=== PATIENT | female | born 1980 | race Caucasian/White ===

== ENCOUNTER 2019-08-30 16:20 | Emergency (ER) | payer OTHER, SELFPAY ==
[2019-08-30 16:30] VITALS: BP 121/87; PULSE 77; RESP 18; TEMP 36.8; O2SAT 98
--- NOTE | 2019-08-30 16:36 | ED.SKABFB ---
HPI - Skin/Abscess/Foreign Bdy General Chief complaint: Skin/Abscess/Foreign Body Stated complaint: Rash on arms/chest/stomach Time Seen by Provider: 08/30/19 16:37 Source: patient and RN notes reviewed Mode of arrival: ambulatory Limitations: no limitations History of Present Illness HPI narrative: This is a 38 years old female presented office for evaluation of sudden onset of itchy rash prior to arrival. She was sitting at home and noticed the itchiness on her arm which she scratched and then she noticed more rash on her breasts and her belly and her lower leg. Denies any association such as fever, feeling ill, nauseous, or vomiting. She did not go outside working in her yard. Denies new medication, clothes, detergent, body wash, or food. No treatment prior to arrival. Her drove her here. Related Data Allergies Allergy/AdvReac Type Severity Reaction Status Date / Time No Known Allergies Allergy Verified 08/30/19 16:40 Review of Systems Review of Systems: Narrative: CONSTITUTIONAL: Denies fever, chills ENT: Denies rhinorrhea, congestion, sore throat, otalgia. CARDIOVASCULAR: Denies chest pain RESPIRATORY: Denies dyspnea, wheezing, cough GASTROINTESTINAL: Denies abdominal pain, nausea, vomiting, diarrhea. GENITOURINARY: Denies urinary symptoms SKIN: Reports itchy rash/bumps on her extremities, chest and belly MUSCULOSKELETAL: Denies acute joints pain or insect bite. NEUROLOGIC: Denies lightheaded/dizziness All other systems reviewed are negative, except as documented in HPI. PMFSH Comments At time of signature, I agree with nursing past medical, surgical, social and family history. There is no relevant family history pertinent to the presenting complaint. Exam Narrative: Exam Narrative: GENERAL: This is a well-nourished, well-developed patient, in no apparent distress. THROAT: Mucous membranes moist, posterior pharynx clear. NECK: Neck supple, non-tender without lymphadenopathy, masses or thyromegaly. CARDIOVASCULAR: Regular rate and rhythm without murmurs, gallops, or rubs. RESPIRATORY: Clear to auscultation. Breath sounds equal bilaterally. No wheezes, rales, or rhonchi. GASTROINTESTINAL: Abdomen soft, non-tender, nondistended. Bowel sounds are active. No hepato-splenomegaly, or palpable masses. No guarding. SKIN: left upper arm noted scatter macular erythema lesions on her anterior aspect of upper arm, left breast noted group macular-erythema with scratch cobos, left side abdomen noted urticaria type of rash. Left anterior knee cap also noted macularpapular-erythematous and edematous without pain to palpation. NEURO: awake, alert, and oriented to person, place and time. There were no obvious focal neurologic abnormalities. Steady gait Henry Coma Scale Eye Opening: Spontaneous 4 Henry Coma Scale Motor: Obeys Commands 6 Henry Coma Scale Verbal: Oriented 5 MDM - Skin/Abscess/Foreign Bdy MDM Narrative Medical decision making narrative: Discharge instructions reviewed with patient, as well as provided in writing per nursing staff. The instructions also include specific and strict return/GO TO THE ER as well as f/u information. All questions have been answered, and the patient deny any further questions with discharge and discharge plan. Differential Diagnosis Differential diagnosis: Likely abscess of skin or subcutaneous tissue, viral exanthem, urticaria, allergic reaction to drug, cellulitis, insect bites, impetigo and contact dermatitis Critical Care Time Critical Care Time Critical Care Time: No Discharge Plan Discharge Clinical Impression: Pruritic erythematous rash Patient Disposition: Home, Self-Care Condition: Stable Instructions: Antibiotic Form, Acute Rash (ED) Additional Instructions: Wash the area with soap and cool water only. Avoid scratching when possible to prevent worsening of the condition and disruption of the skin that could lead to bacterial infection To relieve
[2019-08-30] MEDS: methylPREDNISolone ACETATE 40 MG/ML VIAL 80 MG IM (16:53)
== END 2019-08-30 17:15 | disposition home or self-care (01) ==
PROVIDERS: Emergency Provider Nurse Practitioner
DX: L29.9 Pruritus, unspecified (principal)
CPT/HCPCS: 96372; 99213; A9270; G0463; J1030

== ENCOUNTER 2020-10-12 17:57 | Emergency (ER) | payer OTHER, SELFPAY ==
[2020-10-12 18:02] VITALS: BP 133/77; PULSE 84; RESP 16; TEMP 37.1; O2SAT 99
--- NOTE | 2020-10-12 18:45 | ED.SKABFB ---
HPI - Skin/Abscess/Foreign Bdy General Chief complaint: Skin/Abscess/Foreign Body Stated complaint: Possible Ringworm on left Arm Time Seen by Provider: 10/12/20 18:45 Source: patient, RN notes reviewed and old records reviewed Mode of arrival: ambulatory Limitations: no limitations History of Present Illness HPI narrative: 39 YEAR OLD FEMALE PRESENTS TO [facility] WITH 2-3 WEEK DURATION OF RASH AREA TO HER LEFT FOREARM WHICH IS RED FLAT WITH CENTER CLEARING 2.5 X 2CM IN SIZE WHICH IS ITCHY. PATIENT REPORTS THAT SHE HAS BEEN APPLYING JOCK ITCH CREAM AND APPLYING BANDAID WITH NO IMPROVEMENT, PATIENT DENIES ANY OTHER AREAS OF THIS TYPE OF LESION, DENIES ANYONE ELSE IN HOUSEHOLD EXPERIENCING THIS TYPE OF RASH. MD complaint: rash Onset (ago): week(s) (2-3 WEEKS) Related Data Allergies Allergy/AdvReac Type Severity Reaction Status Date / Time No Known Allergies Allergy Verified 10/12/20 18:09 Review of Systems Review of Systems: CONSTITUTIONAL: Denies fever, chills, or sweats. EYES: Denies visual changes, redness, or discharge. ENT: Denies rhinorrhea, congestion, sore throat, or otalgia. CARDIOVASCULAR: Denies chest pain, palpitations, or edema. RESPIRATORY: Denies cough or dyspnea. GASTROINTESTINAL: Denies abdominal pain, nausea, vomiting, or diarrhea. GENITOURINARY: Denies dysuria or hematuria. SKIN: positive rash or itching to lesion to left forearm for 2-3 week duration MUSCULOSKELETAL: Denies back pain, joint pain, or myalgia. NEUROLOGIC: Denies headache, numbness, or weakness. PSYCHIATRIC: Denies anxiety or depression All systems reviewed & are unremarkable except as noted in HPI and below PMFSH Past Medical History Medical History (Updated 10/16/20 @ 11:27 by Minoo Nguyen NP) Bronchitis History of strep sore throat Kidney stone Surgical History Surgical History (Updated 10/16/20 @ 11:26 by Minoo Nguyen NP) History of tubal ligation Family History Family History (Updated 10/16/20 @ 11:29 by Minoo Nguyen NP) Mother Bone cancer Other Kidney stones Social History Social History (Updated 10/16/20 @ 11:28 by Minoo Nguyen NP) Smoking status: Former smoker Additional smoking assessment comments: quit in 1997 after smoking 1 year Alcohol intake: current Alcohol use details: rare social Substance use: never Living arrangements: with family Gender identity (if verbalized by the patient): Female Exam Narrative: GENERAL: Well-appearing, well-nourished, and in no acute distress. HEAD: Normocephalic, atraumatic. EYES: PERRLA and EOMI. ENT: Nares clear, no rhinorrhea or epistaxis. Mucous membranes moist.TM's normal with good light reflex, throat pink with no lesions or exudates, no tonsil enlargement. NECK: Supple.no lymphadenopathy CHEST: Clear to auscultation. No respiratory distress.SAO2 99% on room air HEART: Regular rate and rhythm. No murmur heard. Normal peripheral pulses. ABDOMEN: Soft, nontender, nondistended, normal active bowel sounds. EXTREMITIES: Normal range of motion. No edema. SKIN: Warm, dry, [id number] flat red lesion to left forearm with central clearing which is itchy, no other lesions noted to body NEURO: No focal deficits. Alert and oriented x3. Course Vital Signs Vital signs: Vital Signs Temperature 37.1 C 10/12/20 18:02 Pulse Rate 84 10/12/20 18:02 Respiratory Rate 16 10/12/20 18:02 Blood Pressure 133/77 10/12/20 18:02 Pulse Oximetry 99 10/12/20 18:02 Temperature 37.1 C 10/12/20 18:02 Pulse Rate 84 10/12/20 18:02 Respiratory Rate 16 10/12/20 18:02 Blood Pressure 133/77 10/12/20 18:02 Pulse Oximetry 99 10/12/20 18:02 MDM - Skin/Abscess/Foreign Bdy Differential Diagnosis Differential diagnosis: Likely abscess of skin or subcutaneous tissue, dermatophytosis, urticaria, cellulitis, eczema and contact dermatitis Medical Records Attestation: I reviewed the patient's medical records. Critical Care Time Jeny
== END 2020-10-12 19:03 | disposition home or self-care (01) ==
PROVIDERS: Emergency Provider Registered Nurse
DX: B35.4 Tinea corporis (principal); Z87.891 Personal history of nicotine dependence
CPT/HCPCS: 99213; G0463